=== PATIENT | female | born 1990 | race African-American/Black ===

== ENCOUNTER 2021-10-23 06:26 | Observation (INO) ==
[2021-10-23 07:00] LABS: Basophils % 0.4 % (0.0-0.8); Eosinophils # 0.2 10*3/uL (0.0-0.87); Eosinophils % 3.3 % (0.00-10.9); Hematocrit 32.9 VOL% (35.7-47.0); Hemoglobin 10.4 GM/DL (12.0-16.0); Immature Granulocytes % 0.6 %; Immature Granulocytes Absolute 0.04 #; Lymphocytes # 2.5 10*3/uL (1.4-4.0); Lymphocytes % 34.8 % (21.3-54.2); Mean Corpuscular HGB Conc 31.6 GM/DL (32-36); Mean Corpuscular Volume 85.5 FL (87-102); Mean Platelet Volume 9.8 FL (9.6-12.0); Monocytes # 0.5 10*3/uL (0.11-0.8); Monocytes % 6.9 % (1.7-12.7); Platelet Count 339 T/CUMM (130-400); Red Blood Count 3.85 MC/CUMM (3.8-5.5); Red Cell Distribution Width 16.1 % (9.3-17.3); White Blood Count 7.3 T/CUMM (4-12)
[2021-10-23 07:19] LABS: Calcium 9.3 MG/DL (8.5-10.1); Osmolality,Calculated 278.5 MOS/KG (273-304); Potassium 3.3 MMOL/L (3.5-5.1)
[2021-10-23 09:23] LABS: PT Patient Result 10.8 SECS (10.1-12.1); Partial Thromboplastin Time 24.6 SECS (23.7-32.9)
[2021-10-23] MEDS ORDERED: ONDANSETRON 4 MG/2 ML VIAL IV STA (09:36)
[2021-10-23] MEDS ORDERED: MORPHINE 2 MG/1 ML SYRINGE IV STA (09:36)
[2021-10-23] MEDS ORDERED: MAGNESIUM HYDROXIDE SUSP 30 ML UDCUP PO PRN (10:18)
[2021-10-23] MEDS ORDERED: ONDANSETRON 4 MG/2 ML VIAL IV PRN (10:18)
[2021-10-23] MEDS ORDERED: BISACODYL 10 MG SUPP RECTAL PRN (10:18)
[2021-10-23] MEDS ORDERED: MORPHINE 2 MG/1 ML SYRINGE IV PRN (10:18)
[2021-10-23] MEDS: LACTATED RINGERS 1,000 ML IV SCH ×2 (11:15→19:50)
[2021-10-23] MEDS ORDERED: miSOPROStoL 200 MCG TABLET PO ONE (11:18)
[2021-10-23] MEDS ORDERED: HYDROmorphone 1 MG/1 ML SYRINGE SUBCUT PRN (12:45)
[2021-10-23] MEDS: HYDROmorphone 1 MG/1 ML SYRINGE IV PRN ×3 (13:11→21:29)
[2021-10-23] MEDS ORDERED: HYDROmorphone 1 MG/1 ML SYRINGE IV ONE (13:36)
[2021-10-24] MEDS: LACTATED RINGERS 1,000 ML IV SCH ×2 (03:56→10:05)
[2021-10-24 06:21] LABS: Basophils # 0.1 10*3/uL (0.0-0.2); Basophils % 0.5 % (0.0-0.8); Eosinophils # 0.3 10*3/uL (0.0-0.87); Eosinophils % 3.2 % (0.00-10.9); Hematocrit 28.8 VOL% (35.7-47.0); Hemoglobin 9.3 GM/DL (12.0-16.0); Immature Granulocytes % 0.4 %; Immature Granulocytes Absolute 0.04 #; Lymphocytes # 2.9 10*3/uL (1.4-4.0); Mean Corpuscular HGB Conc 32.3 GM/DL (32-36); Mean Corpuscular Volume 84.2 FL (87-102); Mean Platelet Volume 9.8 FL (9.6-12.0); Monocytes # 0.6 10*3/uL (0.11-0.8); Monocytes % 5.9 % (1.7-12.7); Platelet Count 315 T/CUMM (130-400); Red Blood Count 3.42 MC/CUMM (3.8-5.5); Red Cell Distribution Width 16.1 % (9.3-17.3)
[2021-10-24] MEDS ORDERED: POTASSIUM CHLORIDE RIDER 10 MEQ/100 ML PREMIX IV PRN (09:35)
[2021-10-24] MEDS ORDERED: LACTATED RINGERS 1,000 ML IV SCH (10:00)
[2021-10-24] MEDS ORDERED: MIDAZOLAM 2 MG/2 ML VIAL ONE (12:12)
[2021-10-24] MEDS ORDERED: LIDOCAINE 2% 5 ML VIAL ONE (12:12)
[2021-10-24] MEDS ORDERED: fentaNYL 100 MCG/2 ML VIAL ONE (12:12)
[2021-10-24] MEDS ORDERED: propofoL 200 MG/20 ML VIAL IV ONE (12:12)
[2021-10-24] MEDS ORDERED: FAMOTIDINE 20 MG/2 ML VIAL IV ONE (12:33)
[2021-10-24] MEDS ORDERED: DEXAMETHASONE 4 MG/1 ML VIAL ONE (12:47)
[2021-10-24] MEDS ORDERED: SUCCINYLCHOLINE 200 MG/10 ML VIAL ONE (12:47)
[2021-10-24] MEDS ORDERED: ONDANSETRON 4 MG/2 ML VIAL ONE (12:47)
[2021-10-24] MEDS ORDERED: SEVOFLURANE 1 UNIT/15 MINUTE INH ONE (12:58)
[2021-10-24] MEDS ORDERED: TRANEXAMIC ACID 1,000 MG/10 ML VIAL ONE (13:08)
[2021-10-24] MEDS ORDERED: DOXYCYCLINE HYCLATE IV ONE (13:45)
[2021-10-24] MEDS ORDERED: SODIUM CHLORIDE 0.9% IV ONE (13:45)
[2021-10-24 16:33] VITALS: BP 145/86
== END 2021-10-24 17:42 | disposition home or self-care (01) ==
LOC: N.ED 06:26 → N.OB 06:26
PROVIDERS: ADMIT Student in an Organized Health Care Education/Training Program; ATTEND Student in an Organized Health Care Education/Training Program